=== PATIENT | female | born 1995 | race Caucasian/White ===

== ENCOUNTER 2018-04-21 21:24 | Emergency (ER) | payer MEDICAID ==
[~2018-04-21] VITALS: Ht 172.7 cm; Wt 48.1 kg
[2018-04-21 21:30] VITALS: BP_SYST 118
[2018-04-21 21:46] VITALS: BP_SYST 112
== END 2018-04-21 21:46 | disposition home or self-care (01) ==
LOC: SED 21:24
DX: Z20.7 Contact with and (suspected) exposure to pediculosis, acariasis and other infestations (principal); J45.909 Unspecified asthma, uncomplicated; Z86.2 Personal history of diseases of the blood and blood-forming organs and certain disorders involving the immune mechanism
CPT/HCPCS: 99283

== ENCOUNTER 2018-05-01 06:28 | Emergency (ER) | payer MEDICAID ==
[~2018-05-01] VITALS: Ht 172.7 cm; Wt 47.6 kg
[2018-05-01 06:42] VITALS: BP_SYST 98
[2018-05-01] MEDS ORDERED: NACL 0.9% 1,000 ML IV ONE (07:09)
[2018-05-01] MEDS ORDERED: KETOROLAC TROMETHAMINE 30 MG VIAL IVP ONE (07:15)
[2018-05-01 07:38] LABS: CALCIUM 8.9 mg/dL (8.4-11.0); CREATININE 0.58 mg/dL (0.55-1.30); POTASSIUM 3.6 mmol/L (3.5-5.1)
[2018-05-01 07:45] LABS: ALBUMIN 3.9 g/dL (3.4-4.8); TOTAL BILIRUBIN 0.8 mg/dL (0.0-1.0)
[2018-05-01 08:13] LABS: BILIRUBIN,URINE 2+ (NEGATIVE); BLOOD, URINE 3+ (NEGATIVE); CLARITY/URINE CLOUDY (CLEAR); COLOR,URINE RED (YELLOW); GLUCOSE,URINE 2+ (NEGATIVE); KETONES,URINE 1+ (NEGATIVE); LEUKOCYTE ESTERASE ,URINE 2+ (NEGATIVE); NITRITE, URINE POSITIVE (NEGATIVE); PH,URINE 6.5 (5.0-8.0); PROTEIN URINE 3+ (NEGATIVE)
[2018-05-01 08:25] LABS: BASOPHILS # (AUTO) 0.1 K/uL (0.0-0.2); EOSINOPHILS % (AUTO) 0.4 % (0.0-4.0); HEMOGLOBIN 12.6 g/dL (12.0-16.0); LYMPHOCYTES # (AUTO) 1.6 K/uL (1.0-5.5); LYMPHOCYTES % (AUTO) 30.5 % (20.5-51.5); MEAN CORPUSCULAR HEMOGLOBIN 30 pg (27-31); MEAN CORPUSCULAR HGB CONC 33 % (32-36); MEAN CORPUSCULAR VOLUME 92 fL (79.0-98.0); MONOCYTES # (AUTO) 0.4 K/uL (0.0-1.0); MONOCYTES % (AUTO) 8.5 % (1.7-9.3); NEUTROPHILS % (AUTO) 59.6 % (40.0-70.0); PLATELET COUNT (AUTO) 190 K/uL (130-430); RED BLOOD CELL COUNT(AUTO) 4.16 MIL/uL (4.2-6.2); RED CELL DISTRIBUTION WIDTH 12.2 % (9.0-15.0); WHITE BLOOD COUNT (AUTO) 5.1 K/uL (4.8-10.8)
[2018-05-01] MEDS ORDERED: SULFAMETHOXAZOLE/TRIMETHOPR DS 1 TABLET PO ONE (08:30)
[2018-05-01] MEDS ORDERED: PHENAZOPYRIDINE HCL 100 MG TABLET PO ONE (08:30)
[2018-05-01 08:53] LABS: RBC,URINE >100 /HPF (0-3)
[2018-05-01 08:54] LABS: BACTERIA,URINE MODERATE /HPF (None Seen); MUCUS,URINE None Seen /LPF (None Seen); YEAST,URINE None Seen /HPF (None Seen)
[2018-05-01 08:57] VITALS: BP_SYST 100
== END 2018-05-01 08:57 | disposition home or self-care (01) ==
LOC: SED 06:28
DX: R31.9 Hematuria, unspecified (principal); R10.9 Unspecified abdominal pain; J45.909 Unspecified asthma, uncomplicated; Z86.2 Personal history of diseases of the blood and blood-forming organs and certain disorders involving the immune mechanism; Z98.51 Tubal ligation status
CPT/HCPCS: 36415; 80053; 81000; 85025; 87086; 87186; 96374; 99284; J1885; J7030

== ENCOUNTER 2021-10-11 22:07 | Emergency (ER) | payer MEDICAID ==
[~2021-10-11] VITALS: Ht 180.3 cm; Wt 54.4 kg
[2021-10-11 22:17] VITALS: BP_SYST 116
--- NOTE | 2021-10-11 22:22 | NUR ---
Pt brought by self, A&Ox4, pt presents to ER with skin rash on fce and bilateral extremities, pt afebrile,skin pink and warm , cap refill <3.
--- NOTE | 2021-10-11 23:15 | NUR ---
Pt placed to ER bed 04. Report given to THOMAS Gagnon.
--- NOTE | 2021-10-12 00:05 | NUR ---
PT ROOMED AND FACIAL AND BILATERAL UE RASH FOR SEVERAL DAYS. PT HAS NO RESP DISTRESS AND NO THROAT SWELLING OR IRRITATION. NO C/O PAIN, BUT ITCHINESS AND HARD TO SLEEP D/T ITCHINESS FOR SEVERAL DAYS. CARE RESUMED.
[2021-10-12] MEDS ORDERED: DIPHENHYDRAMINE INJ 50 MG/ML VIAL IM ONE (01:00)
--- NOTE | 2021-10-12 02:18 | NUR ---
NO RESP DISTRESS AND NO WHEEZING NOTED, NO N/V ANDN O CP. CARE RESUMED. VITALS STABLE
--- NOTE | 2021-10-12 02:57 | NUR ---
PT RESTING COMFORTABLY IN [facility], PT VERBALIZED THAT ITCHINESS IS GONE AND SHE FEELS BETTER THEN BEFORE. NO RESP DISTRESS AND NO C/O PAIN CURRENTLY, CARE RESUMED
[2021-10-12] MEDS ORDERED: DIPH25CA83 PO (03:39)
--- NOTE | 2021-10-12 03:46 | NUR ---
D/C INSTRUCTIONS GIVEN TO PT AND RX DISCUSSED. PT STABLE AND NO RESP DISTRESS, NO C/O PAIN AND ITCHINESS RESOLVED. PT'S BOTHER CAME TO [facility] PT TO GO HOME .
[2021-10-12 03:48] VITALS: BP_SYST 116
== END 2021-10-12 03:48 | disposition home or self-care (01) ==
LOC: SED 22:07
DX: R21 Rash and other nonspecific skin eruption (principal); J45.909 Unspecified asthma, uncomplicated; Z79.899 Other long term (current) drug therapy
CPT/HCPCS: 96372; 99283; J1200

== ENCOUNTER 2022-01-11 22:22 | Emergency (ER) | payer MEDICAID ==
[~2022-01-11] VITALS: Ht 167.6 cm; Wt 56.7 kg
[~2022-01-11 22:22] MED LIST: DIPH25CA83 PO
[2022-01-11 22:26] VITALS: BP_SYST 118
[2022-01-11 22:55] VITALS: BP_SYST 118
== END 2022-01-11 22:55 | disposition home or self-care (01) ==
LOC: SED 22:22
DX: S90.122A Contusion of left lesser toe(s) without damage to nail, initial encounter (principal); J45.909 Unspecified asthma, uncomplicated; W22.09XA Striking against other stationary object, initial encounter; Y93.89 Activity, other specified; Y92.89 Other specified places as the place of occurrence of the external cause; Y99.8 Other external cause status
CPT/HCPCS: 99283

== ENCOUNTER 2022-05-18 06:30 | Inpatient (IN) | payer MEDICAID ==
[~2022-05-18] VITALS: Ht 172.7 cm; Wt 59.4 kg
[2022-05-18 06:34] VITALS: BP_SYST 109
--- NOTE | 2022-05-18 06:40 | NUR ---
PT HERE C/O LLQ ABD PAIN X3 DAYS AND PER PT SHE IS ALSO HAVING VAGINAL DISCHARGE. PT DENIES N/V/D, DENIES DYSURIA. PMH;DENIES PT AAOX4, NO SOB NOTED AND NAD. PT AMBULATED WITH STEADY GAIT TO RM3, REPORT GIVEN TO FAZAL GUZMAN
--- NOTE | 2022-05-18 06:44 | NUR ---
PT IS AA&OX4. AFEBRILE. NAD. C/O 02/28 LLQ PAIN. LMP= 04/08/2022. AMBULATORY W/ STEADY GAIT. SAFE & HAZARD FREE ENVIRONMENT PROVIDED.
--- NOTE | 2022-05-18 06:50 | NUR ---
ER Dr. Baker at bedside examining patient.
--- NOTE | 2022-05-18 06:59 | NUR ---
urine preg test (-) Dr. Baker aware.
--- NOTE | 2022-05-18 07:00 | NUR ---
Urine specimen collected and sent to lab.
--- NOTE | 2022-05-18 07:22 | NUR ---
report andrea Saavedra RN.
[2022-05-18 07:24] LABS: BILIRUBIN,URINE NEGATIVE (NEGATIVE); BLOOD, URINE 3+ (NEGATIVE); CLARITY/URINE CLOUDY (CLEAR); GLUCOSE,URINE NEGATIVE (NEGATIVE); KETONES,URINE NEGATIVE (NEGATIVE); LEUKOCYTE ESTERASE ,URINE 1+ (NEGATIVE); NITRITE, URINE NEGATIVE (NEGATIVE); PROTEIN URINE TRACE (NEGATIVE); UROBILINOGEN,URINE 0.2 (0.2-1.0)
--- NOTE | 2022-05-18 07:31 | NUR ---
REPORT GIVEN TO YANI GUZMAN.
[2022-05-18 07:32] LABS: COLOR,URINE AMBER (YELLOW)
[2022-05-18 07:34] LABS: BACTERIA,URINE None Seen /HPF (None Seen); MUCUS,URINE None Seen /LPF (None Seen); RBC,URINE 50-80 /HPF (0-3)
[2022-05-18] MEDS ORDERED: KETOROLAC TROMETHAMINE 30 MG VIAL IM ONE (08:15)
[2022-05-18 10:02] LABS: BASOPHILS # (AUTO) 0.1 K/uL (0.0-0.2); EOSINOPHILS % (AUTO) 0.6 % (0.0-4.0); HEMATOCRIT 37.5 % (36-48); HEMOGLOBIN 12.7 g/dL (12.0-16.0); LYMPHOCYTES # (AUTO) 1.6 K/uL (1.0-5.5); LYMPHOCYTES % (AUTO) 27.5 % (20.5-51.5); MEAN CORPUSCULAR HEMOGLOBIN 30 pg (27-31); MEAN CORPUSCULAR HGB CONC 34 % (32-36); MEAN CORPUSCULAR VOLUME 88 fL (79.0-98.0); MONOCYTES # (AUTO) 0.5 K/uL (0.0-1.0); MONOCYTES % (AUTO) 8.5 % (1.7-9.3); NEUTROPHILS # (AUTO) 3.7 K/uL (1.8-7.7); NEUTROPHILS % (AUTO) 62.4 % (40.0-70.0); PLATELET COUNT (AUTO) 181 K/uL (130-430); RED BLOOD CELL COUNT(AUTO) 4.26 MIL/uL (4.2-6.2); RED CELL DISTRIBUTION WIDTH 13.2 % (9.0-15.0); WHITE BLOOD COUNT (AUTO) 5.9 K/uL (4.8-10.8)
[2022-05-18 10:03] LABS: CREATININE 0.53 mg/dL (0.55-1.30)
[2022-05-18] MEDS ORDERED: cefTRIAXone 1 GM in D5W 50 ML IV ONE (14:30)
[2022-05-18] MEDS ORDERED: cefTRIAXone 1 GM VIAL ONE (15:02)
--- NOTE | 2022-05-18 15:16 | NUR ---
Admit bed requested Patient will be admitted to care of . Admitted to MED SURG unit. Diagnosis PELVIC PAIN Inpatient (Yes or No) Y Observation (Yes or No) N Orientation concerns or request close to nursing station (Yes or No) N Covid Status NEG On vent or bipap N Isolation requirements N Needs a sitter N From Home (Yes or if No enter name of facility) N Requires Dialysis (Yes or No) N Med Rec Completed (Yes of No) Y
--- NOTE | 2022-05-18 16:15 | NUR ---
REPORT GIVEN TO KISHAN GUZMAN.
--- NOTE | 2022-05-18 16:30 | NUR ---
RECEIVED PT FROM Na WITH DIAGNOSIS OF PELVIC PAIN UNDER DR FONTAINE. PT IS AAOX4, DENIES PAIN. NO SOB. ORIENTED TO ROOM AND USE OF CALL LIGHT AND BED AND TV CONTROLS. ENCOURAGED TO CALL FOR ASSIST AND ANY CONCERNS. WILL CONT TO MONITOR.
--- NOTE | 2022-05-18 16:41 | NUR ---
CONSULTATION PAGED/CALLED Reason for Consultation: [] PELVIC PAIN Person Who was Notified: [] DR MAHER Consulting Physician: [] DR MAHER Training Coordinator Specialty: [] OBGYN Ordering Physician: [] DR FONTAINE
--- NOTE | 2022-05-18 16:43 | NUR ---
DR MAHER , OBGYN . CALLED BACK AND READ TO HIM THE RESULT OF U/S AND CT SCAN BY UNIT SECT JOSE DAVID THEN SPOKE WITH THIS RN. SAID BASE OF RESULTS , PT IS JUST HAVING OVULATION PAIN AND DOES NO NEED OBYGYN WORK OR INTERVENTIONS. WILL INFORM DR FONTAINE.
[2022-05-18 16:46] VITALS: BP_SYST 97
--- NOTE | 2022-05-18 16:53 | NUR ---
ATTENDING MD DR FONTAINE WAS CALLED, RE: TO INFORM THE MESSAGE OF DR MAHER, THE OBGYN .
--- NOTE | 2022-05-18 16:53 | NUR ---
DR FONTAINE CALLED BACK AND MADE AWARE OF DR PEARCE RECOMMENDATION. NEW ORDERS RECEIVED AND CARRIED OUT.
[2022-05-18] MEDS ORDERED: NALOXONE HCL 0.4 MG/ML AMP (NARCAN) IVP PRN ×2 (17:15)
[2022-05-18] MEDS: IBUPROFEN 600 MG TABLET PO SCH ×2 (17:15→19:50)
[2022-05-18] MEDS ORDERED: HYDROcodone/ACETAMIN 5-325 MG TAB (NORCO/ VICODIN) PO PRN (17:15)
[2022-05-18] MEDS ORDERED: ONDANSETRON HCL 4 MG/2 ML VIAL IVP PRN (17:15)
[2022-05-18] MEDS ORDERED: HYDROcodone/ACETAMIN 10-325 MG TAB PO PRN (17:15)
[2022-05-18] MEDS ORDERED: LORazepam 2 MG/ML VIAL IVP PRN (17:15)
[2022-05-18] MEDS ORDERED: ACETAMINOPHEN 325 MG TABLET PO PRN (17:15)
--- NOTE | 2022-05-18 18:47 | NUR ---
PT HAS BEEN STABLE, GIVEN MOTRIN WITH GOOD PAIN RELIEF. INFORMED PT THAT SHE CAN HAVE OTHER PAIN MED IN CASE SHE NEEDS IT. ALL SHE NEED IS TO CALL THIS RN OR THE NIGHT NURSES.
--- NOTE | 2022-05-18 19:25 | NUR ---
OPENING NOTE REPORT RECEIVED FROM DAYSHIFT NURSE. PATIENT RECEIVED LYING IN BED, AWAKE, NO S/S OF ACUTE DISTRESS NOTED. BREATHING EVEN AND UNLABORED. IV SITE PATENT, NO SIGNS OF INFILTRATION OR INFECTION NOTED. CALL LIGHT WITH PATIENT. BED IS LOCKED AND AT LOWEST POSITION. WILL CONTINUE TO MONITOR.
[2022-05-18 20:00] VITALS: BP_SYST 98
[2022-05-18] MEDS: NORMAL SALINE 5 ML DISP.SYRIN IVF SCH (21:57)
[2022-05-18] MEDS ORDERED: NORMAL SALINE 5 ML DISP.SYRIN IVF SCH (22:00)
--- NOTE | 2022-05-18 23:00 | NUR ---
ROUNDS PATIENT RESTING. NO SIGNS OF DISCOMFORT. WILL MONITOR.
[2022-05-19] VITALS: BP_SYST 94
--- NOTE | 2022-05-19 03:00 | NUR ---
ROUNDS NO CHANGED FROM PREVIOUS NOTE. PATIENT STILL RESTING. WILL MONITOR.
[2022-05-19] MEDS: NORMAL SALINE 5 ML DISP.SYRIN IVF SCH (06:15)
--- NOTE | 2022-05-19 06:16 | NUR ---
CLOSING NOTE PATIENT IN BED, NO S/S OF ACUTE DISTRESS. BREATHING IS EVEN AND UNLABORED. IV SITE IS PATENT, NO SIGNS OF INFILTRATION OR INFECTION NOTED. ALL NEEDS MET THROUGHOUT SHIFT. FALL, SAFETY PRECAUTIONS MAINTAINED THROUGHOUT SHIFT. WILL CONTINUE TO MONITOR UNTIL PATIENT CARE IS ENDORSED TO ONCOMING DAYSHIFT NURSE.
[2022-05-19 07:50] LABS: CALCIUM 8.8 mg/dL (8.4-11.0); CREATININE 0.52 mg/dL (0.55-1.30)
[2022-05-19 07:54] LABS: BASOPHILS % (AUTO) 0.7 % (0.0-2.0); EOSINOPHILS # (AUTO) 0.1 K/uL (0.0-0.4); EOSINOPHILS % (AUTO) 1.5 % (0.0-4.0); HEMATOCRIT 38.8 % (36-48); HEMOGLOBIN 13.1 g/dL (12.0-16.0); LYMPHOCYTES % (AUTO) 39.3 % (20.5-51.5); MEAN CORPUSCULAR HEMOGLOBIN 30 pg (27-31); MEAN CORPUSCULAR HGB CONC 34 % (32-36); MEAN CORPUSCULAR VOLUME 88 fL (79.0-98.0); MONOCYTES # (AUTO) 0.4 K/uL (0.0-1.0); MONOCYTES % (AUTO) 7.8 % (1.7-9.3); NEUTROPHILS # (AUTO) 2.6 K/uL (1.8-7.7); NEUTROPHILS % (AUTO) 50.7 % (40.0-70.0); PLATELET COUNT (AUTO) 192 K/uL (130-430); RED BLOOD CELL COUNT(AUTO) 4.43 MIL/uL (4.2-6.2); RED CELL DISTRIBUTION WIDTH 13.5 % (9.0-15.0); WHITE BLOOD COUNT (AUTO) 5.2 K/uL (4.8-10.8)
[2022-05-19 08:05] VITALS: BP_SYST 107
[2022-05-19] MEDS: IBUPROFEN 600 MG TABLET PO SCH (09:01)
[2022-05-19] MEDS ORDERED: IBUP-1969 PO (13:06)
[2022-05-19 13:11] VITALS: BP_SYST 101
[2022-05-19 13:43] VITALS: BP_SYST 100
--- NOTE | 2022-05-19 14:14 | NUR ---
D/C Patient Patient given medication reconciliation form and D/C instructions. Exit Care provided. Patient verbalized understanding. MD discussed with patient the results and treatment provided. Ambulatory with steady gait for discharge to home. Patient in stable condition, ID band removed. IV catheter removed, intact and dressing applied, no active bleeding. ERx for motrin given. Patient educated on pain management. All belongings sent with patient.
== END 2022-05-19 13:00 | disposition home or self-care (01) | DRG 532 ==
LOC: SED 06:30 → SMU 15:08
PROVIDERS: ADMIT Preventive Medicine Preventive Medicine/Occupational Environmental Medicine; ATTEND Preventive Medicine Preventive Medicine/Occupational Environmental Medicine
DX: N83.201 Unspecified ovarian cyst, right side (principal); E27.8 Other specified disorders of adrenal gland; J45.909 Unspecified asthma, uncomplicated; Z20.822 Contact with and (suspected) exposure to COVID-19
CPT/HCPCS: 36415; 76376; 76830-TC; 80048; 81000; 85025; 87086; 96365; 96372; 99285; J0696; J1885; Q9967

== ENCOUNTER 2023-02-25 05:02 | Emergency (ER) | payer MEDICAID ==
[~2023-02-25] VITALS: Ht 172.7 cm; Wt 59.4 kg
[~2023-02-25 05:02] MED LIST changes: -DIPH25CA83 PO; +IBUP-1969 PO
[2023-02-25 05:15] VITALS: BP_SYST 116; PULSE 85; RESP 20; TEMP 98.3; O2SAT 99
[2023-02-25] MEDS ORDERED: NACL 0.9% 1,000 ML IV ONE (05:30)
[2023-02-25] MEDS ORDERED: DICYCLOMINE HCL 20 MG/2 ML AMP IM ONE (05:30)
[2023-02-25] MEDS ORDERED: ONDANSETRON HCL 4 MG/2 ML VIAL IVP ONE (05:30)
[2023-02-25 05:50] LABS: BASOPHILS % (AUTO) 0.2 % (0.0-2.0); EOSINOPHILS % (AUTO) 0.1 % (0.0-4.0); HEMATOCRIT 40.2 % (36-48); LYMPHOCYTES # (AUTO) 0.4 K/uL (1.0-5.5); LYMPHOCYTES % (AUTO) 4.2 % (20.5-51.5); MEAN CORPUSCULAR HEMOGLOBIN 28 pg (27-31); MEAN CORPUSCULAR HGB CONC 32 % (32-36); MEAN CORPUSCULAR VOLUME 87 fL (79.0-98.0); MONOCYTES # (AUTO) 0.3 K/uL (0.0-1.0); NEUTROPHILS # (AUTO) 8.1 K/uL (1.8-7.7); NEUTROPHILS % (AUTO) 92.5 % (40.0-70.0); PLATELET COUNT (AUTO) 202 K/uL (130-430); RED BLOOD CELL COUNT(AUTO) 4.64 MIL/uL (4.2-6.2); RED CELL DISTRIBUTION WIDTH 13.9 % (9.0-15.0); WHITE BLOOD COUNT (AUTO) 8.7 K/uL (4.8-10.8)
[2023-02-25 06:08] LABS: ALBUMIN 4.2 g/dL (3.4-4.8); CALCIUM 8.8 mg/dL (8.4-11.0); CREATININE 0.64 mg/dL (0.55-1.30); TOTAL BILIRUBIN 0.9 mg/dL (0.0-1.0)
[2023-02-25] MEDS ORDERED: KETOROLAC TROMETHAMINE 30 MG VIAL IVP ONE (06:15)
[2023-02-25 06:28] VITALS: BP_SYST 103; PULSE 82; RESP 16; TEMP 98.3; O2SAT 99
[2023-02-25 06:28] LABS: BILIRUBIN,URINE NEGATIVE (NEGATIVE); BLOOD, URINE NEGATIVE (NEGATIVE); CLARITY/URINE CLEAR (CLEAR); COLOR,URINE YELLOW (YELLOW); GLUCOSE,URINE NEGATIVE (NEGATIVE); KETONES,URINE 2+ (NEGATIVE); LEUKOCYTE ESTERASE ,URINE NEGATIVE (NEGATIVE); NITRITE, URINE NEGATIVE (NEGATIVE); PROTEIN URINE NEGATIVE (NEGATIVE); UROBILINOGEN,URINE 0.2 (0.2-1.0)
[2023-02-25] MEDS ORDERED: NAPR-688 PO (07:01)
[2023-02-25] MEDS ORDERED: LOM2.5 PO (07:01)
[2023-02-25] MEDS ORDERED: ONDA-8 TL (07:01)
== END 2023-02-25 07:12 | disposition home or self-care (01) ==
LOC: SED 05:02
DX: K52.9 Noninfective gastroenteritis and colitis, unspecified (principal); R11.2 Nausea with vomiting, unspecified; R10.9 Unspecified abdominal pain; J45.909 Unspecified asthma, uncomplicated; Z79.899 Other long term (current) drug therapy
CPT/HCPCS: 99284; 96374; 96375; 96361; 80053; 83690; 85025; 36415; 81003; J0500; J1885; J2405; J7030

== ENCOUNTER 2024-01-09 23:24 | Emergency (ER) | payer MEDICAID ==
[~2024-01-09] VITALS: Ht 175.3 cm; Wt 59.0 kg
[~2024-01-09 23:24] MED LIST changes: +LOM2.5 PO; +NAPR-688 PO; +ONDA-8 TL
[2024-01-09 23:54] VITALS: BP_SYST 94; PULSE 85; RESP 19; TEMP 98; O2SAT 100
== END 2024-01-10 02:24 | disposition left against medical advice (07) ==
LOC: SED 23:24
DX: R05.9 Cough, unspecified (principal); R50.9 Fever, unspecified; R09.89 Other specified symptoms and signs involving the circulatory and respiratory systems; R19.7 Diarrhea, unspecified; R11.2 Nausea with vomiting, unspecified; Z53.21 Procedure and treatment not carried out due to patient leaving prior to being seen by health care provider